=== PATIENT | female | born 1930 | race Caucasian/White ===

== ENCOUNTER 2016-12-12 06:22 | Emergency (ER) | payer MEDICARE, BC ==
--- NOTE | 2016-12-12 06:52 | EDM.PDOC ---
ED HPI GENERAL MEDICAL PROBLEM - General Chief Complaint: ENT Problem Stated Complaint: NOSE BLEED Time Seen by Provider: 12/12/16 06:46 Source of Information: Reports: Patient, Family History Limitations: Reports: No Limitations - History of Present Illness INITIAL COMMENTS - FREE TEXT/NARRATIVE: This is an 86-year-old female. Onset of left-sided nasal bleed about 4 AM this morning. After holding pressure to it and doing several other things at home the bleeding would not stop so they come to the ER. She denies being on any blood thinners other than a baby aspirin daily. She states she's had 3 nosebleeds that left side over the last several days but this is the longest. She denies any cough or congestion she denies any acute upper respiratory type symptoms or infections. - Related Data Allergies Allergy/AdvReac Type Severity Reaction Status Date / Time carbamazepine Allergy Cannot Verified 12/12/16 06:46 Remember ciprofloxacin Allergy Joint Pain Verified 12/12/16 06:46 epoetin beta Allergy Cannot Verified 12/12/16 06:46 Remember fluvastatin Allergy Cannot Verified 12/12/16 06:46 Remember methylprednisolone Allergy Cannot Verified 12/12/16 06:46 Remember nitrofurantoin Allergy Rash Verified 12/12/16 06:46 Penicillins Allergy Swollen Verified 12/12/16 06:46 Tongue phenytoin Allergy Cannot Verified 12/12/16 06:46 Remember sulfanilamide Allergy Anaphylactic Verified 12/12/16 06:46 Shock sennoside B Allergy Cannot Uncoded 10/24/15 07:38 Remember Home Meds: Home Meds . [Unable to Verify Home Med List] 12/12/16 [History] ED ROS ENT - Review of Systems Review Of Systems: See Below Constitutional: Denies: Fever, Chills HEENT: Reports: Other (As per history of present illness) Respiratory: Reports: No Symptoms Cardiovascular: Reports: No Symptoms Endocrine: Reports: No Symptoms GI/Abdominal: Reports: No Symptoms Musculoskeletal: Reports: No Symptoms Skin: Reports: No Symptoms Neurological: Reports: No Symptoms Psychiatric: Reports: No Symptoms Hematologic/Lymphatic: Reports: No Symptoms ED EXAM, ENT - Physical Exam Exam: See Below Exam Limited By: No Limitations General Appearance: Alert, WD/WN, No Apparent Distress Eye Exam: Bilateral Eye: Normal Inspection Ears: Normal External Exam Nose: Active Bleeding, Other (The left nasal passage shows active bleeding and I cannot identify the actual area of bleed, the right side appears to be clear) Mouth/Throat: Other (There is noted to be some blood down the back of her throat initially) Head: Normocephalic Neck: Supple Respiratory/Chest: Lungs Clear Cardiovascular: Regular Rate, Rhythm, No Murmur Back: Full Range of Motion Extremities: Normal Inspection, Normal Range of Motion Neurological: Alert, Oriented Psychiatric: Normal Affect, Normal Mood Skin: Warm, Dry ED ENT PROCEDURES - Epistaxis Procedure Indication: epistaxis Recent anticoagulants/antiplatlets: No Uncontrolled HTN: No Recent septal/nasal surgery: No Site of bleeding: left nare, other (Not certain where the bleeding site is) Clearing of clots: other (Patient spit out some small clots from posterior pharynx) Topical Meds: topical cocaine Ice pack to area: No Anterior Packing: other (A 7.5 cm Rhino Rocket was coated with topical cocaine, he was slid into the left nasal passage without difficulty and the balloon was inflated, the inflation was until the patient felt pressure and then a period of time was given an additional air was added to the balloon until pressure was felt and this was done 4 times and the bleeding has stopped) Complications: No Course - Vital Signs Last Recorded V/S: Last Vital Signs Temp 97.4 F 12/12/16 06:29 Pulse 78 12/12/16 06:29 Resp 18 12/12/16 06:29 BP 177/91 H 12/12/16 06:29 Pulse Ox 100 12/12/16 06:29 - Orders/Labs/Meds Meds: Medications Discontinued Medications Generic Name Dose Route Start Last Admin Trade Name Nigel PRN Reason Stop Dose Admin Cocaine HCl 1 ml 12/12/16 06:33 12/12/16 06:50 Cocaine Hcl TOP 12/12/16 06:34 4 ml ONETIME ONE Administration Cocaine HCl Confirm 12/12/16 06:37 12/12/16 06:50 Cocaine Hcl Administered 12/12/16 06:38 Not Given Dose 4 ml .ROUTE .STK-MED ONE - Re-Assessments/Exams Free Text/Narrative Re-Assessment/Exam: 12/12/16 07:11 After inflating the Rhino Rocket for times and so she felt felt a pressure was complete hemostasis of the nosebleed. She feels comfortable though they're still pressure from the Rhino Rocket. Posterior pharynx did not show any bleed or drainage at this time. Departure - Departure Time of Disposition: 07:12 Disposition: Home, Self-Care 01 Condition: fair Clinical Impression: Epistaxis - Discharge Information Referrals: Patrick Nieto MD [Primary Care Provider] - Forms: ED Department Discharge Additional Instructions: You may continue with normal activity, do not touch or play with or blow your nose since you can dislodge the balloon, do not blow your nose until you see your family doctor and he removes the balloon, followup with your family doctor by calling his office Wednesday so he can see you and removed the balloon, if there is any problems or the bleeding starts again then return to the ER over the weekend
== END 2016-12-12 07:38 | disposition home or self-care (01) ==
LOC: JD.ED 06:22
DX: R04.0 Epistaxis (principal); Z88.0 Allergy status to penicillin; Z88.1 Allergy status to other antibiotic agents; Z88.8 Allergy status to other drugs, medicaments and biological substances
CPT/HCPCS: 30903; 99282; 99283-25

== ENCOUNTER 2017-09-29 15:29 | Emergency (ER) | payer MEDICARE, BC ==
[2017-09-29 15:51] VITALS: BP 150/90
--- NOTE | 2017-09-29 17:22 | EDM.PDOC ---
ED HPI GENERAL MEDICAL PROBLEM - General Chief Complaint: Back Pain or Injury Stated Complaint: PAIN IN MIDDLE OF BACK Time Seen by Provider: 09/29/17 16:55 Source of Information: Reports: Patient, Family (Son) History Limitations: Reports: No Limitations - History of Present Illness INITIAL COMMENTS - FREE TEXT/NARRATIVE: The patient states that she developed midline mid-back pain this past 09/25/2017, while driving. She is unable to describe the character, other than it "hurts". The pain waxes and wanes. She has tried some sports cream and Bio Freeze, both of which have given her temporary relief. She denies having injured her back. No prior back pain. The patient denies associated chest pain, nausea, emesis, constipation, diarrhea , urinary symptoms, dyspnea, palpitations, or cough. The patient also reports pains in numerous other areas of her body, particularly her left elbow, but also lower extremity joints. The patient's PCP is Dr. Simmons. Middle Back Pain Score (Numeric/FACES): 5 - Related Data Allergies Allergy/AdvReac Type Severity Reaction Status Date / Time carbamazepine Allergy Cannot Verified 09/29/17 15:52 Remember ciprofloxacin Allergy Joint Pain Verified 09/29/17 15:52 epoetin beta Allergy Cannot Verified 09/29/17 15:52 Remember fluvastatin Allergy Cannot Verified 09/29/17 15:52 Remember methylprednisolone Allergy Cannot Verified 09/29/17 15:52 Remember nitrofurantoin Allergy Rash Verified 09/29/17 15:52 Penicillins Allergy Swollen Verified 09/29/17 15:52 Tongue phenytoin Allergy Cannot Verified 09/29/17 15:52 Remember sulfanilamide Allergy Anaphylactic Verified 09/29/17 15:52 Shock sennoside B Allergy Cannot Uncoded 09/29/17 15:52 Remember Home Meds: Home Meds Aspirin 81 mg PO DAILY 09/29/17 [History] B2/Vit A,C & E/Lut/Zeaxanth/Mn [Icaps] 1 each PO DAILY 09/29/17 [History] Triamterene/Hydrochlorothiazid [Triamterene-HCTZ 37.5-25 MG] 1 each PO DAILY 02/09 [History] Past Medical History Cardiovascular History: Reports: Hypertension Musculoskeletal History: Reports: Arthritis - Past Surgical History HEENT Surgical History: Reports: Tonsillectomy GI Surgical History: Reports: Cholecystectomy Neurological Surgical History: Reports: Lumbar Spine (Lumbar fusion 2011) Social & Family History - Tobacco Use Smoking Status *Q: Never Smoker - Caffeine Use Caffeine Use: Reports: None - Alcohol Use Alcohol Use History: Yes Alcohol Use Frequency: Rarely - Recreational Drug Use Recreational Drug Use: No - Living Situation & Occupation Living situation: Reports: , with Family (Son) Occupation: Retired ED ROS GENERAL - Review of Systems Review Of Systems: ROS reveals no pertinent complaints other than HPI. ED EXAM,LOWER BACK PAIN/INJURY - Physical Exam Exam: See Below Exam Limited By: No Limitations General Appearance: Alert, WD/WN, No Apparent Distress Eye Exam: Bilateral Eye: Normal Inspection Ears: Normal External Exam, Hearing Grossly Normal Nose: Normal Inspection, No Blood Throat/Mouth: Normal Inspection, Normal Lips, Normal Voice, No Airway Compromise Head: Atraumatic, Normocephalic Neck: Normal Inspection, Full Range of Motion Respiratory/Chest: No Respiratory Distress, Lungs Clear, Normal Breath Sounds, No Accessory Muscle Use Cardiovascular: Normal Peripheral Pulses, Regular Rate, Rhythm, No Gallop, No JVD, No Murmur, No Rub GI/Abdominal: Normal Bowel Sounds, Soft, Non-Tender, No Organomegaly, No Distention, No Abnormal Bruit, No Mass (Female) Exam: Deferred Rectal (Female) Exam: Deferred Back Exam: Normal Inspection, Full Range of Motion, Other (Mild tenderness to palpation over the T11 and T12 spinous processes. Less tender to percussion. Essentially no paraspinous muscle tenderness.) Extremities: Normal Inspection, Normal Range of Motion, Normal Capillary Refill Neurological: Alert, No Motor/Sensory Deficits, Oriented x 3 Psychiatric: Normal Affect Skin Exam: Warm, Dry, Intact, Normal Color, No Rash Course - Vital Signs Last Recorded V/S: Last Vital Signs Temp 36.6 C 09/29/17 15:48 Pulse 85 09/29/17 15:48 Resp 16 09/29/17 15:48 BP 150/90 H 09/29/17 15:48 Pulse Ox 96 09/29/17 15:48 - Orders/Labs/Meds Orders: Active Orders 24 hr Category Date Time Status Chest 2V [CR] Stat Exams 09/29/17 17:09 Taken Lumbar Spine 2 or 3V [CR] Stat Exams 09/29/17 17:09 Taken Thoracic Spine 2V [CR] Stat Exams 09/29/17 17:09 Taken - Re-Assessments/Exams Free Text/Narrative Re-Assessment/Exam: 09/29/17 18:02 Two-view chest radiograph reviewed. Cardiac silhouette is at the upper limits of normal. No pulmonary vascular congestion. No pleural effusions. No focal infiltrate. No pneumothorax. Hyperinflation and bilateral diaphragmatic flattening, consistent with COPD, noted. Scoliosis and lumbar hardware noted. Costal cartilage ossification noted. Significant multilevel disc height loss noted. Formal read per the Radiologist pending. 3-view radiographs of the thoracic spine. Demonstrate chronic-appearing degenerative changes, including multilevel disc height loss and vertebral body compressions, however, no acute abnormalities identified. Formal read per the Radiologist pending. 2-view radiographs of the lumbar spine appears to demonstrate advanced degenerative changes, including multilevel disc height loss and retrolisthesis of L2 on L3. L4-L5 fusion hardware noted. Scoliosis noted. Formal read per the Radiologist pending. 09/29/17 18:15 X-ray results discussed with the patient and her son. Because the patient's pain is reproducible to palpation, it appears to be musculoskeletal. No obvious source found on the radiographs. I'm recommending that the patient continue to use the sports cream and Biofreeze, then a follow-up with Dr. Simmons for further evaluation if her pain persists. Departure - Departure Time of Disposition: 18:16 Disposition: Home, Self-Care 01 Condition: Good Clinical Impression: Mid back pain - Discharge Information Referrals: Patrick Nieto MD [Primary Care Provider] - Forms: ED Department Discharge Additional Instructions: You were seen in the emergency room for mid back pain since 09/25/2017. Workup in the ER included a chest x-ray and x-rays of your thoracic and lumbar spine. None of the x-rays found abnormalities that would explain your pain. We recommend that you continue to use sports cream and Biofreeze to help with your pain. If your pain continues into next week, please follow-up with your PCP, Dr. Dank Rivera, for further evaluation. If any other problems, please do not hesitate to return to the ER. - My Orders Last 24 Hours: My Active Orders 09/29/17 17:09 Chest 2V [CR] Stat Lumbar Spine 2 or 3V [CR] Stat Thoracic Spine 2V [CR] Stat - Assessment/Plan Last 24 Hours: My Active Orders 09/29/17 17:09 Chest 2V [CR] Stat Lumbar Spine 2 or 3V [CR] Stat Thoracic Spine 2V [CR] Stat
--- NOTE | 2017-09-30 07:32 | CR ---
Lumbar spine: AP and lateral views of the lumbar spine were obtained. Comparison: No previous study. Previous surgery of transpedical screws are noted at L4-L5. Disc fusion is seen. Disc space narrowing is noted at L1-L2 and L2-L3 as well as L3-L4. L5-S1 disc is also narrowed possibly due to transitional segment. Mild retrolisthesis is seen at L2-L3. Mild scattered endplate osteophytes are noted anterior and laterally. Scoliosis is noted. Atherosclerotic calcification is noted within the aorta. Bony structures are osteopenic. Disc space narrowing is noted within the lower thoracic spine. Impression: 1. Previous surgery. 2. Scoliosis and diffuse degenerative change. Diagnostic code #3
--- NOTE | 2017-09-30 07:32 | CR ---
Thoracic spine: AP, lateral and swimmer's views of the thoracic spine were obtained. Scoliosis is noted within the spine. Mild diffuse disc space narrowing is seen throughout the thoracic spine. Minimal scattered endplate osteophytes are seen. Bony structures are osteopenic. Impression: 1. Scoliosis and mild diffuse degenerative change. Diagnostic code #2
--- NOTE | 2017-09-30 07:32 | CR ---
Chest: Two views of the chest were obtained. Comparison: No prior chest x-ray. Heart is enlarged. Lungs are hyperinflated compatible with emphysematous change. Minimal areas of scarring are seen. Central lung markings are increased which are most likely chronic. Scoliosis is noted within the spine compatible with previous lumbar spine surgery. Mild diffuse disc space narrowing is noted throughout the spine. Impression: 1. Cardiomegaly and emphysematous change. 2. Degenerative change with disc space narrowing throughout the spine. 3. Other incidental findings. Diagnostic code #3
== END 2017-09-29 19:05 | disposition home or self-care (01) ==
LOC: JD.ED 15:29
DX: M54.6 Pain in thoracic spine (principal); I10 Essential (primary) hypertension; Z79.82 Long term (current) use of aspirin; Z79.899 Other long term (current) drug therapy; Z88.0 Allergy status to penicillin; Z88.2 Allergy status to sulfonamides; Z88.8 Allergy status to other drugs, medicaments and biological substances; Z88.1 Allergy status to other antibiotic agents
CPT/HCPCS: 71046; 71046-26; 72070; 72070-26; 72100; 72100-26; 99283